=== PATIENT | male | born 1970 | race Caucasian/White ===

== ENCOUNTER 2018-09-05 11:15 | Outpatient (RCR) | payer OTHER, MEDICAID, SELFPAY ==
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
--- NOTE | 2018-07-04 17:00 | PT.OPPOC ---
Current Diagnoses Pain in right shoulder (07/04/18) Radiculopathy, lumbar region (07/04/18) Muscle weakness (generalized) (07/04/18) Other symptoms and signs involving the musculoskeletal system (07/04/18) Provider Visit Care Team Role Provider Type Johnny Hernandez MD Primary Care Provider Physician Specialty: Internal Medicine Address: [address] [place] [address], [id number] Email: Flor Anderson DO Attending Provider Physician Specialty: Family Practice Address: [address] [place] [address], [id number] Email: [email or web address] Plan Of Care PT-OP-T Assessment and Plan Start: 06/26/18 14:47 Freq: Status: Active Protocol: Document 07/04/18 08:51 LRN (Rec: 07/04/18 17:46 LRN [id number]) Physical Therapy Assessment Rehab Potential Rehabilitation Potential Good Evaluation Complexity Number of Personal Factors/Comorbidities 3 or More Number of Body Systems Impaired 4 or More Clinical Presentation at Evaluation Evolving Impairments Impairments Activity Tolerance Pain Posture ROM Soft Tissue Mobility Strength Other Concerns Age Related Concerns Disabled, 47 years old waiting to get on social security. Barriers to Rehabilitation Co-morbidities. Chronicity of condition. Goals Three Impairment R shoulder pain Face Cleaner Goal (LTG) Pt will be educated in a self care program to improve stability and decrease pain. LTG Duration 09/07/18 Two Impairment Decreased functional ability per JOVANY score of 35 Face Cleaner Goal (LTG) Pt will demonstrate improved function per JOVANY less than 35. LTG Duration 09/07/18 One Impairment Lacks independent HEP for current condition. Face Cleaner Goal (LTG) Pt will be independent with a HEP to independently manage his condition without the use of medications. LTG Duration 09/07/18 Assessment Summary Assessment Pt presents with mechanical dysfunction and indications of possible neurological involvement as noted with + PSLR test bilaterally. He also demonstrates postural deviations, also limiting his ability to tolerate prolonged positioning. He demonstrates soft tissue dysfunction in the thoracic spine on the left (T2-T5) and in the lumbar spine (L3-L5) with tenderness of the upper gluteals and lateral thighs. He appears to have atrophy of the R Hamstring (L5-S2). The pt also complains of R shoulder pain that does not appear to be associated to his ACJ which he tends to focus on, but can be reproduced with cervical joint compression and T2-T5 transverse process mobilization; therefore he may have cervical joint or disc involvement as well as thoracic spine involvement. Further assessment is needed during the course of his rehabilitation. The pt will benefit from skilled physical therapy to improve his overall mobility and core/shoulder/LE strength. The pt will also benefit from education of a HEP and posture/body mechanics training. Rehabilitation may be prolonged due to social stresses the patient has mentioned (loss of housing in 4 months) and his ability to access funds for treatment of his tinnea corporis. Physical Therapy Plan Frequency and Duration Frequency of Treatment 2x/Week Plan of Care Start Date 07/04/18 Plan of Care End Date 09/07/18 Therapeutic Interventions Therapeutic Interventions Home Exercise Program Manual Therapy Neuromuscular Re-education Patient/Caregiver Education Self-Care/Home Management Soft Tissue Mobilization Taping Therapeutic Activities Therapeutic Exercises Modalities Cold Pack/Ice Massage Electric Stimulation Hot Packs Next Visit Focus/Plan Next Note Type Treatment Note Next Visit Plan Recheck reproduction of R shoulder pain with Cervical compression/traction and T2-T5 JMT. Check hip mobility and strength. Start with DLS training, discuss proper posturing and body mechanics, start LE neural stretching, manual mob to upper back and STM to the R intrascapular muscles and Supraspinatus. HEP of neck stretches and DLS ex. Correct spinal and sacral positioning and stabilize the core/upper back. Discuss shoulder goals. Plan of Care Dates Plan of Care Start Date 07/04/18 Plan of Care End Date 09/07/18 Please Sign and Return: I have reviewed this Plan of Care and certify that the skilled therapy services above are required to meet the patient?s needs. Physician Signature Date Printed Name and Credentials Clinical Instructor Signature Printed Name and Credentials
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
== END 2018-11-07 12:14 ==
LOC: PHYS 11:15
PROVIDERS: PCP Student in an Organized Health Care Education/Training Program; Visit Provider Family Medicine
DX: M54.16 Radiculopathy, lumbar region (principal)
CPT/HCPCS: 97010; 97110; 97112; 97162; 97530; 97535